=== PATIENT | female | born 1935 | race Caucasian/White ===

== ENCOUNTER 2018-12-09 10:49 | Outpatient (CLI) | payer MEDICARE ==
--- NOTE | 2018-12-09 12:06 | MRI ---
MRI Upper Ext Jt Rt WO Con HISTORY:Right shoulder pain. Patient fell approximately a week and a half ago. COMPARISON: None. FINDINGS: There is a massive rotator cuff tear. The tear involves the entirety of the supra and infra spinatus tendons. The tendons are retracted by approximately 4 cm. The AP dimension of this component of the tear is approximately 3.8 cm. Minimal residual tendon remaining. In addition there i s a near-complete subscapularis tendon tear some of the more inferior fibers still appear to be intact. The humeral head is high riding associated with this. An intra-articular portion of the biceps tendon is not identified. The superior labrum is irregular i n appearance. There is a biceps tendon identified in the lower bicipital groove. There is an abnormal appearance to the anterior band of the inferior glenohumeral ligament appears be a high-grade tear at the humeral attachment. There is moderate atrophy of the subscapularis and infraspinatus muscles mild to moderate atrophy of the supraspinatus muscle. Blunting to the posterior labrum is noted and arthritic changes in the glenohumeral joint space are s een. IMPRESSION: Massive rotator cuff tear involving the entirety of the supra and infraspinatus tendons w hich are significantly retracted. There is a almost complete tear of the subscapularis tendon, some of the inferior fibers still appear to be intact. High-grade tear of the humeral attachment of the inferior glenohumeral ligament. Moderate subscapularis and infraspinatus muscle atrophy with mild to moderate atrophy of the supraspi natus muscle.
== END 2018-12-09 10:50 | disposition home or self-care (01) ==
LOC: SCSMRI 10:49
PROVIDERS: ATTEND Physical Medicine & Rehabilitation
DX: M25.511 Pain in right shoulder (principal); M24.011 Loose body in right shoulder; M19.011 Primary osteoarthritis, right shoulder; S46.911A Strain of unspecified muscle, fascia and tendon at shoulder and upper arm level, right arm, initial encounter; M75.101 Unspecified rotator cuff tear or rupture of right shoulder, not specified as traumatic; S43.401A Unspecified sprain of right shoulder joint, initial encounter; M62.511 Muscle wasting and atrophy, not elsewhere classified, right shoulder